=== PATIENT | female | born 1960 | race Caucasian/White ===

== ENCOUNTER → 2020-02-23 | Outpatient (CLI) | payer SELFPAY | LOC: COL.CARD 08:17 | DX: R01.1 Cardiac murmur, unspecified (principal) ==

== ENCOUNTER → 2020-04-03 | Emergency (ER) | payer OTHER ==
[~2020-04-03] MED LIST: PROTONIX 40MG T40 MG PO
[2020-04-04 14:34] VITALS: BP 107/63; PULSE 75
[2020-04-11 14:50] LABS: ANION GAP 9 mmol/L (7-16); BLOOD UREA NITROGEN 17 mg/dL (7-17); CALCIUM 9.5 mg/dL (8.4-10.2); CARBON DIOXIDE 29 mmol/L (22-30); CHLORIDE 103 mmol/L (98-107); CREATININE, serum 1.01 (0.52-1.25); GLUCOSE 185 mg/dL (74-106); LIPASE 107 U/L (23-300); POTASSIUM 3.8 mmol/L (3.4-5.0); SODIUM 141 mmol/L (137-145); TROPONIN-I < 0.012 ng/mL (0.000-0.035)
[2020-04-11 14:54] LABS: ALBUMIN 3.7 gm/dL (3.5-5.0); ANION GAP 5 mmol/L (7-16); AST,SGOT 39 U/L (15-37); BILIRUBIN,TOTAL 0.4 mg/dL (0.0-1.0); BLOOD UREA NITROGEN 13 mg/dL (7-17); CARBON DIOXIDE 25 mmol/L (22-30); CHLORIDE 111 mmol/L (98-107); CREATININE, serum 0.75 (0.52-1.25); GLUCOSE 103 mg/dL (74-106); POTASSIUM 3.6 mmol/L (3.4-5.0); SODIUM 141 mmol/L (137-145); TOTAL PROTEIN 6.8 gm/dL (6.4-8.2)
[2020-04-11 14:55] LABS: ALANINE AMINOTRANSFERASE 36 U/L (4-34); ALKALINE PHOSPHATASE 63 U/L (50-136); TROPONIN-I < 0.012 ng/mL (0.000-0.035)
[2020-04-11 15:04] LABS: BASO % 0.5 % (0.0-2.0); EOS # 0.1 (0.0-0.7); EOS % 1.5 % (0-4.0); GRAN # 2.6 (1.4-6.5); GRAN % 38.6 % (42.2-75.2); HEMATOCRIT 38.3 % (37.0-47.0); HEMOGLOBIN 12.6 g/dl (12.5-16.0); LYMPH # 3.3 (1.2-3.4); LYMPH % 49.9 % (20.0-51.0); MEAN CELL VOLUME 90 fl (80.0-100.0); MEAN CORPUSCULAR HEMOGLOBIN 30 pg (27.0-31.0); MEAN CORPUSCULAR HGB CONC 33 g/dl (33.0-37.0); MEAN PLATELET VOLUME 10.3 fl (7.4-10.4); MONO # 0.6 (0.1-0.6); MONO % 9.3 % (1.7-9.3); PLATELET COUNT 298 K/mm3 (130-400); RED BLOOD COUNT 4.24 M/mm3 (4.10-5.30)
[2020-04-11 15:04] LABS: HEMATOCRIT 29.8 % (37.0-47.0); HEMOGLOBIN 9.7 g/dl (12.5-16.0); MEAN CELL VOLUME 91 fl (80.0-100.0); MEAN CORPUSCULAR HEMOGLOBIN 30 pg (27.0-31.0); MEAN CORPUSCULAR HGB CONC 33 g/dl (33.0-37.0); PLATELET COUNT 237 K/mm3 (130-400); RED BLOOD COUNT 3.27 M/mm3 (4.10-5.30); REDCELL DISTRIBUTION WIDTH-CV 13.1 % (11.5-14.5)
== END ==
LOC: COL.ER 20:20
PROVIDERS: Emergency Medicine
DX: R07.9 Chest pain, unspecified (principal); R11.0 Nausea
CPT/HCPCS: Q9967

== ENCOUNTER → 2020-04-13 | Outpatient (CLI) | payer OTHER | LOC: MC.RAD | DX: Z12.31 Encounter for screening mammogram for malignant neoplasm of breast (principal) ==

== ENCOUNTER 2020-04-29 20:08 | Emergency (ER) | payer OTHER ==
[~2020-04-29] VITALS: Ht 157.5 cm; Wt 50.0 kg
[2020-04-29 20:12] VITALS: TEMP 96.9
[2020-04-29 20:45] LABS: BASO % 0.3 % (0.0-2.0); EOS % 0.5 % (0-4.0); GRAN # 3.4 (1.4-6.5); GRAN % 52.3 % (42.2-75.2); HEMATOCRIT 38.4 % (37.0-47.0); HEMOGLOBIN 12.6 g/dl (12.5-16.0); LYMPH # 2.5 (1.2-3.4); LYMPH % 38.7 % (20.0-51.0); MEAN CELL VOLUME 90 fl (80.0-100.0); MEAN CORPUSCULAR HEMOGLOBIN 29 pg (27.0-31.0); MEAN CORPUSCULAR HGB CONC 33 g/dl (33.0-37.0); MEAN PLATELET VOLUME 9.6 fl (7.4-10.4); MONO # 0.5 (0.1-0.6); PLATELET COUNT 325 K/mm3 (130-400); RED BLOOD COUNT 4.29 M/mm3 (4.10-5.30); REDCELL DISTRIBUTION WIDTH-CV 13.2 % (11.5-14.5)
[2020-04-29 20:46] LABS: ALBUMIN 4.8 gm/dL (3.5-5.0); BILIRUBIN,TOTAL 1.2 mg/dL (0.0-1.0); CALCIUM 9.4 mg/dL (8.4-10.2); CREATININE, serum 0.94 (0.52-1.25); POTASSIUM 3.8 mmol/L (3.4-5.0); TOTAL PROTEIN 9.4 gm/dL (6.4-8.2)
[2020-04-29 20:59] LABS: TROPONIN-I 0.091 ng/mL (0.000-0.035)
[2020-04-29] MEDS ORDERED: PROTONIX 40MG T40 MG PO (21:01)
[2020-04-29 21:06] LABS: INR 1.1 (0.8-3.0); PROTHROMBIN TIME 11.9 SECONDS (9.7-12.8)
[2020-04-29 21:09] LABS: PARTIAL THROMBOPLASTIN TIME 29.4 SECONDS (26.0-37.0)
[2020-04-29 21:57] VITALS: BP 106/92; PULSE 64
== END 2020-04-29 23:03 | disposition short-term general hospital (02) ==
LOC: COL.ER 20:08
PROVIDERS: Emergency Medicine
DX: I21.3 ST elevation (STEMI) myocardial infarction of unspecified site (principal); K21.9 Gastro-esophageal reflux disease without esophagitis
CPT/HCPCS: J1644; J3101

== ENCOUNTER 2020-07-23 15:37 | Outpatient (RCR) | payer OTHER | END 2020-07-30 15:49 | disposition home or self-care (01) | LOC: COL.CR 15:37 | DX: Z48.812 Encounter for surgical aftercare following surgery on the circulatory system (principal); Z95.5 Presence of coronary angioplasty implant and graft ==

== ENCOUNTER → 2023-03-06 | Outpatient (CLI) | payer SELFPAY | LOC: COL.RAD 09:01 | DX: M77.31 Calcaneal spur, right foot (principal); M72.2 Plantar fascial fibromatosis ==

== ENCOUNTER 2023-04-06 08:48 | Day surgery (SDC) | payer SELFPAY ==
[~2023-04-06] VITALS: Ht 157.6 cm; Wt 48.9 kg
[2023-04-06] MEDS ORDERED: Glycopyrrolate 0.2 MG/ML 1 ML VIAL ONE (09:36)
[2023-04-06] MEDS ORDERED: ePHEDrine 50 MG/ML VIAL ONE (09:38)
[2023-04-06] MEDS ORDERED: NS 20 ML IV ONE (09:38)
[2023-04-06] MEDS ORDERED: 1/2 NS 1,000 ML IV SCH (10:00)
[2023-04-06] MEDS ORDERED: NS Flush 10 ML SYRINGE PRN ICA (10:00)
[2023-04-06 10:04] LABS: HEMATOCRIT 37.2 % (37.0-47.0); HEMOGLOBIN 12.6 g/dl (12.5-16.0); MEAN CELL VOLUME 87 fl (80.0-100.0); MEAN CORPUSCULAR HEMOGLOBIN 30 pg (27-31); MEAN CORPUSCULAR HGB CONC 34 g/dl (33.0-37.0); PLATELET COUNT 253 K/mm3 (130-400); RED BLOOD COUNT 4.27 M/mm3 (4.10-5.30); REDCELL DISTRIBUTION WIDTH-CV 13.1 % (11.5-14.5)
[2023-04-06] MEDS ORDERED: LIPITOR 80MG80 MG PO (10:10)
[2023-04-06] MEDS ORDERED: ASPIRIN E.C. 8181 MG PO (10:10)
[2023-04-06 10:12] LABS: PROTHROMBIN TIME 11.2 SECONDS (9.7-12.8)
[2023-04-06] MEDS ORDERED: PRINIVIL2.5 MG PO (10:12)
[2023-04-06] MEDS ORDERED: FISH OIL 1000MG1 CAP PO (10:12)
[2023-04-06] MEDS ORDERED: TOPROL XL 25MG25 MG PO (10:13)
[2023-04-06] MEDS ORDERED: TYLENOL 325MG325 MG PO (10:14)
[2023-04-06] MEDS ORDERED: NITROSTAT0.4 MG/TAB SL (10:14)
[2023-04-06 10:17] VITALS: BP 131/73; PULSE 67; TEMP 98
[2023-04-06 10:24] LABS: CALCIUM 10.2 mg/dL (8.4-10.2); CREATININE, serum 0.84 mg/dL (0.57-1.11)
[2023-04-06] MEDS ORDERED: NS Flush 10 ML SYRINGE BID ICA SCH (21:00)
== END 2023-04-06 13:10 | disposition home or self-care (01) ==
LOC: COL.CAR 08:48
PROVIDERS: Internal Medicine Cardiovascular Disease
DX: I25.10 Atherosclerotic heart disease of native coronary artery without angina pectoris (principal); Z79.82 Long term (current) use of aspirin; I65.23 Occlusion and stenosis of bilateral carotid arteries; I25.5 Ischemic cardiomyopathy; I35.1 Nonrheumatic aortic (valve) insufficiency; I34.0 Nonrheumatic mitral (valve) insufficiency; I25.2 Old myocardial infarction; Z79.899 Other long term (current) drug therapy; Z95.5 Presence of coronary angioplasty implant and graft
CPT/HCPCS: J2704

== ENCOUNTER → 2023-06-09 | Outpatient (CLI) | payer SELFPAY ==
[~2023-06-09] MED LIST changes: +ASPIRIN E.C. 8181 MG PO; +FISH OIL 1000MG1 CAP PO; +LIPITOR 80MG80 MG PO; +NITROSTAT0.4 MG/TAB SL; +PRINIVIL2.5 MG PO; +TOPROL XL 25MG25 MG PO; +TYLENOL 325MG325 MG PO
[2023-06-09 11:03] LABS: HEMATOCRIT 41.2 % (37.0-47.0); HEMOGLOBIN 13.7 g/dl (12.5-16.0); MEAN CELL VOLUME 88 fl (80.0-100.0); MEAN CORPUSCULAR HEMOGLOBIN 29 pg (27-31); MEAN CORPUSCULAR HGB CONC 33 g/dl (33.0-37.0); MEAN PLATELET VOLUME 10.4 fl (7.4-10.4); PLATELET COUNT 261 K/mm3 (130-400); RED BLOOD COUNT 4.66 M/mm3 (4.10-5.30); REDCELL DISTRIBUTION WIDTH-CV 14.1 % (11.5-14.5)
[2023-06-09 11:21] LABS: CALCIUM 10.3 mg/dL (8.4-10.2); CREATININE, serum 0.93 mg/dL (0.57-1.11); POTASSIUM 4.3 mEq/L (3.5-4.5)
== END ==
LOC: COL.LAB 09:33
PROVIDERS: Podiatrist Sports Medicine
DX: M77.31 Calcaneal spur, right foot (principal)